=== PATIENT | male | born 1965 | race Asian ===

== ENCOUNTER 2017-10-24 21:12 | Inpatient (IN) | payer MEDICAID ==
[~2017-10-24] VITALS: Ht 170.2 cm; Wt 60.6 kg
[2017-10-24 21:30] VITALS: BP 135/74
[2017-10-25] MEDS ORDERED: ONDANSETRON HCL/PF 4 MG/2 ML VIAL IVP PRN (01:00)
[2017-10-25] MEDS ORDERED: ZOLPIDEM TARTRATE 5 MG TABLET PO PRN (01:00)
[2017-10-25] MEDS ORDERED: ACETAMINOPHEN 325 MG TABLET PO PRN (01:00)
[2017-10-25] MEDS ORDERED: Z GUARD REMEDY 2 OZ OINT TP PRN (01:00)
[2017-10-25] MEDS: IV NS 0.9% 1,000 ML IV PRN ×2 (01:08→20:37)
[2017-10-25] MEDS ORDERED: MORPHINE SULFATE INJ 4 MG/ML DISP.SYRIN IV ONE ×2 (06:05)
[2017-10-25 08:00] VITALS: BP 106/70
[2017-10-25 10:34] LABS: BASOPHILS % (AUTO) 0.3 % (0.0-2.0); EOSINOPHILS % (AUTO) 0.7 % (0.0-6.0); HEMATOCRIT 36 % (39-51); LYMPHOCYTES # (AUTO) 1.3 /CMM (0.8-4.8); LYMPHOCYTES % (AUTO) 18.6 % (20.0-44.0); MEAN CORPUSCULAR HEMOGLOBIN 33 PG (26.0-33.0); MEAN CORPUSCULAR HGB CONC 34 g/dl (31.0-36.0); MEAN CORPUSCULAR VOLUME 98 fL (80-96); MONOCYTES # (AUTO) 0.4 /CMM (0.1-1.30); MONOCYTES % (AUTO) 5.2 % (2.0-12.0); NEUTROPHILS # (AUTO) 5.4 /CMM (1.8-8.9); NEUTROPHILS % (AUTO) 75.2 % (43.0-81.0); PLATELET COUNT (AUTO) 241 /CMM (150-450); RED BLOOD CELL COUNT(AUTO) 3.65 MIL/uL (4.5-6.0); WHITE BLOOD COUNT (AUTO) 7.2 K/uL (4.3-11.0)
[2017-10-25 10:48] LABS: CALCIUM, SERUM 7.8 mg/dL (8.5-10.1); POTASSIUM 4.2 mmol/L (3.5-5.1)
[2017-10-25 11:08] LABS: INR 0.95 (0.87-1.13)
[2017-10-25] MEDS ORDERED: BACITRACIN 50000 UNITS/VIAL ONE (13:58)
[2017-10-25] MEDS ORDERED: BUPIVACAINE 0.5 % PF 150 MG/30 ML VIAL ONE (16:22)
[2017-10-25 17:00] VITALS: BP 97/62
[2017-10-25] MEDS ORDERED: HYDROMORPHONE INJ 2 MG/ML DISP.SYRIN ONE (17:04)
[2017-10-25] MEDS ORDERED: oxyCODONE IR immediate release 5 MG PO PRN (17:30)
[2017-10-25] MEDS ORDERED: MORPHINE SULFATE INJ 4 MG/ML DISP.SYRIN IV PRN (17:30)
[2017-10-25 17:45] VITALS: BP 97/61
[2017-10-25] MEDS: ACETAMINOPHEN 325 MG TABLET PO SCH ×2 (18:27→22:32)
[2017-10-25 20:00] VITALS: BP 93/55
[2017-10-25] MEDS: ANCEF 1 GM/50 ML D5W IV SCH ×2 (20:36)
[2017-10-25 21:00] VITALS: BP 93/55
[2017-10-26] MEDS: ANCEF 1 GM/50 ML D5W IV SCH ×2 (05:21)
[2017-10-26] MEDS: ACETAMINOPHEN 325 MG TABLET PO SCH ×4 (05:24→23:02)
[2017-10-26 08:00] VITALS: BP 105/61
[2017-10-26] MEDS: CALCIUM CARB 600MG /VIT D 1 EACH TABLET PO SCH ×2 (08:12→17:02)
[2017-10-26] MEDS: ENOXAPARIN SODIUM 40 MG/0.4 ML DISP.SYRIN SQ SCH (08:13)
[2017-10-26 11:38] LABS: BASOPHILS % (AUTO) 0.3 % (0.0-2.0); EOSINOPHILS % (AUTO) 0.8 % (0.0-6.0); HEMATOCRIT 29 % (39-51); HEMOGLOBIN 9.5 g/dL (13.5-17.5); LYMPHOCYTES % (AUTO) 21.9 % (20.0-44.0); MEAN CORPUSCULAR HEMOGLOBIN 32 PG (26.0-33.0); MEAN CORPUSCULAR HGB CONC 33 g/dl (31.0-36.0); MEAN CORPUSCULAR VOLUME 99 fL (80-96); MONOCYTES # (AUTO) 0.6 /CMM (0.1-1.30); MONOCYTES % (AUTO) 6.3 % (2.0-12.0); NEUTROPHILS # (AUTO) 6.6 /CMM (1.8-8.9); NEUTROPHILS % (AUTO) 70.7 % (43.0-81.0); PLATELET COUNT (AUTO) 217 /CMM (150-450); RDW COEFFICIENT OF VARIATION 13.2 (11.5-15.0); RED BLOOD CELL COUNT(AUTO) 2.97 MIL/uL (4.5-6.0); WHITE BLOOD COUNT (AUTO) 9.3 K/uL (4.3-11.0)
[2017-10-26 11:46] LABS: CALCIUM, SERUM 7.7 mg/dL (8.5-10.1); CREATININE 1.1 mg/dL (0.6-1.3); POTASSIUM 3.6 mmol/L (3.5-5.1)
[2017-10-26 11:58] LABS: MAGNESIUM 1.8 mg/dL (1.8-2.4); PHOSPHORUS 2.6 mg/dL (2.5-4.9)
[2017-10-26 12:20] LABS: CHOLESTEROL 116 mg/dL (<200); HDL CHOLESTEROL 40 mg/dL (40-60); LDL 67 mg/dL (0-99); TRIGLYCERIDES 74 mg/dL (30-150)
[2017-10-26 16:00] VITALS: BP_SYST 124; BP_SYST 140; BP_DIAS 64; BP_DIAS 76
[2017-10-26 20:00] VITALS: BP 122/70
[2017-10-27] MEDS: ACETAMINOPHEN 325 MG TABLET PO SCH ×2 (05:47→12:16)
[2017-10-27 06:31] LABS: BASOPHILS % (AUTO) 0.3 % (0.0-2.0); EOSINOPHILS % (AUTO) 1.4 % (0.0-6.0); HEMATOCRIT 29 % (39-51); HEMOGLOBIN 9.6 g/dL (13.5-17.5); LYMPHOCYTES # (AUTO) 1.4 /CMM (0.8-4.8); MEAN CORPUSCULAR HEMOGLOBIN 33 PG (26.0-33.0); MEAN CORPUSCULAR HGB CONC 33 g/dl (31.0-36.0); MEAN CORPUSCULAR VOLUME 99 fL (80-96); MONOCYTES # (AUTO) 0.7 /CMM (0.1-1.30); NEUTROPHILS # (AUTO) 7.1 /CMM (1.8-8.9); NEUTROPHILS % (AUTO) 76.3 % (43.0-81.0); PLATELET COUNT (AUTO) 229 /CMM (150-450); RDW COEFFICIENT OF VARIATION 12.7 (11.5-15.0); RED BLOOD CELL COUNT(AUTO) 2.94 MIL/uL (4.5-6.0); WHITE BLOOD COUNT (AUTO) 9.3 K/uL (4.3-11.0)
[2017-10-27 06:59] LABS: CREATININE 0.9 mg/dL (0.6-1.3); MAGNESIUM 1.6 mg/dL (1.8-2.4); PHOSPHORUS 2.9 mg/dL (2.5-4.9); POTASSIUM 3.8 mmol/L (3.5-5.1)
[2017-10-27 07:58] VITALS: BP 130/69
[2017-10-27] MEDS: CALCIUM CARB 600MG /VIT D 1 EACH TABLET PO SCH (08:12)
[2017-10-27] MEDS: ENOXAPARIN SODIUM 40 MG/0.4 ML DISP.SYRIN SQ SCH (08:15)
[2017-10-27 08:29] VITALS: BP 130/69
[2017-10-27] MEDS: Magnesium 1GM/D5W 100ML PREMIX 100 ML IV SCH ×2 (11:17→12:17)
[2017-10-27] MEDS ORDERED: Calcium Carb 600MG /Vit D PO (11:59)
[2017-10-27] MEDS ORDERED: ENOX40DI SQ (11:59)
[2017-10-27] MEDS ORDERED: OXYC5CAP18 PO (11:59)
== END 2017-10-27 13:25 | disposition home health service (06) | DRG 308 ==
LOC: MED 21:12 → MEDSG2 10-26 18:57
PROVIDERS: ADMIT Student in an Organized Health Care Education/Training Program; ATTEND Student in an Organized Health Care Education/Training Program
PROC: 0QS904Z Reposition Left Femoral Shaft with Internal Fixation Device, Open Approach (ICD-10-PCS; principal; 2017-10-25 14:00)
DX: S72.352A Displaced comminuted fracture of shaft of left femur, initial encounter for closed fracture (principal); D68.59 Other primary thrombophilia; D63.8 Anemia in other chronic diseases classified elsewhere; V28.0XXA Motorcycle driver injured in noncollision transport accident in nontraffic accident, initial encounter; Y93.89 Activity, other specified; Y92.89 Other specified places as the place of occurrence of the external cause
CPT/HCPCS: 36415; 71045-TC; 73502; 73552; 80048-TC; 80061-TC; 83735-TC; 84100-TC; 85025-TC; 85730-TC; 87081-TC; 93307-TC; 97110-TC; 97116-TC; 97530-TC; A6209; A6402; C1713; J0690; J1100; J1170; J1260; J1650; J1885; J2270; J2704; J2710; J3490; J7030; J7060; Z7610